=== PATIENT | male | born 1955 | race Caucasian/White ===

== ENCOUNTER 2017-06-07 09:40 | Emergency (ER) | payer BC ==
[2017-06-07 10:23] LABS: BASOPHIL# 0.1 X 10^3uL (0.0-0.1); LYMPHOCYTES# 1.4 X 10^3uL (0.8-3.8); MONOCYTES# 0.5 X 10^3uL (0.2-1.0)
[2017-06-07 10:34] LABS: A/G RATIO 1.3; ALBUMIN 4.2 g/dL (3.5-5.0); ALKALINE PHOSPHATASE 98 U/L (38-126); ALT 149 U/L (21-72); AST 96 U/L (17-59); BILIRUBIN, TOTAL 1.4 mg/dL (0.2-1.3); BLOOD UREA NITROGEN 17 mg/dL (9-20); CALCIUM 9.7 mg/dL (8.4-10.2); CHLORIDE 97 mmol/L (98-107); EST GLOMERULAR FILTRATION RATE > 60 mL/min; GLUCOSE 179 mg/dL (70-100); POTASSIUM 3.4 mmol/L (3.5-5.1); SODIUM 138 mmol/L (137-145); TOTAL PROTEIN 7.4 g/dL (6.3-8.2)
[2017-06-07 10:35] LABS: BASOPHILS 1.1 % (0.0-2.0); EOSINOPHILS 2.4 % (0.0-6.0); EOSINOPHILS# 0.1 X 10^3uL (0.0-0.4); HEMOGLOBIN 18.1 g/dL (14.0-18.0); LYMPHOCYTES 23.8 % (20.0-40.0); MEAN CELL VOLUME 88.8 fL (80.0-100.0); MEAN CORPUS. HGB CONCENTRATION 34.8 g/dL (32.0-36.0); MEAN CORPUSCULAR HEMOGLOBIN 30.9 pg (29.0-35.0); MEAN PLATELET VOLUME 8.3 fL (7.4-10.4); MONOCYTES 8.4 % (2.0-10.0); NEUTROPHILS 64.3 % (54.0-75.0); NEUTROPHILS# 3.9 X 10^3uL (2.6-6.7); PLATELET COUNT 151 X 10^3uL (130-440); RED BLOOD COUNT 5.85 X 10^6uL (4.20-6.10); RED CELL DISTRIBUTION WIDTH 12.4 % (11.5-14.5)
[2017-06-07 10:46] LABS: TROPONIN I < 0.012 ng/mL (0.00-0.034)
--- NOTE | 2017-06-07 12:03 | RADIOLOGY REPORT ---
HISTORY: Shortness of breath COMPARISON: None. FINDINGS: 2 views of the chest obtained. The heart size is normal. Lungs are underexpanded. There is diffuse ai rways thickening. No focal airspace infiltrate is demonstrated. There is no pleural effusion. No pneu mothorax is demonstrated. The chest wall appears grossly intact. IMPRESSION: 1. No acute pneumonia. 2. Pulmonary underexpansion. 3. Diffuse airways thickening, suggestive of bronchitis or asthma. Final Electronic Signature: This report was electronically signed by Srinivasan Almaguer MD on 06/07/2017 12:01 PM. aj /
--- NOTE | 2017-06-07 12:40 | ER PHYSICIAN DOCUMENTATION ---
Physician Documentation [facility] Name:Griffin De La Paz Age:62 yrs Sex:Male :1955 Arrival Date:06/07/2017 Time:09:40 Bed4 Private MD: Kang Rodriguez Disposition: 06/07 13:00 Chart complete. tl1 Disposition: 06/07/17 12:25 Discharged to Home/Self Care. Impression: Dyspnea. - Condition is Good. - Discharge Instructions: DYSPNEA. - Prescriptions for Combivent Respimat 20- 100 mcg/actuation Inhalation aerosol - inhale 1 puff by INHALATION route 4 times per day not to exceed 6 puffs in 24hrs; 1 Inhaler. VENTOLIN - inhale 2 puff by INHALATION route every 4-6 hours; 1 Inhaler. - Medical Reconciliation form form. - Follow up: Private Physician; When: 1 - 2 days; Reason: Recheck today's complaints. - Problem is new. - Symptoms have improved. HPI: 09:52 This 62 yrs old Male presents to ER with complaints of Shortness Of Breath. tl1 06/08 07:41 he has a h/o obesity and is here visiting from [place]. He and his drove and tl1 arrived 2 days ago. Shortly after, he developed dyspnea that is slowly progressive. No cough or fever. No chest pain or hemoptysis. No orthopnea or PND. NO known h/o CAD or CHF. Both legs have been mildly swollen, the left slightly more than the right.. Historical: - Allergies: No known drug Allergies; - Home Meds: 1. losartan-hydrochlorothiazide 100-25 mg oral tab 1 tab once daily for Hypertension 2. Flomax 0.4 mg oral cp24 1 cap once daily for Benign Prostatic Hypertrophy 3. certirizine - PMHx: HYPERTENSION; BPH; Allergies; - PSHx: L knee Surgery; - Tetanus: < 10 years. - Ebola Screening: : Patient negative for fever greater than or equal to 101.5 degrees Fahrenheit, and additional compatible Ebola Virus Disease symptoms. Patient denies exposure to infectious person. Patient denies travel to an Ebola-affected area in the 21 days before illness onset. . - Immunization history: Pneumococcal vaccine is not up to date, Patient has never been vaccinated Flu Vaccine < 1 year Flu Vaccine. - Social history: Smoking status: Patient states former smoker of tobacco. ROS: 06/07 10:00 Respiratory: Positive for shortness of breath. tl1 All other systems are negative. Exam: 10:00 Constitutional: This is a well developed, well nourished patient who is awake, alert, tl1 and in no acute distress. Head/Face: Normocephalic, atraumatic. ENT: Nares patent. No nasal discharge, no septal abnormalities noted. Tympanic membranes are normal and external auditory canals are clear. Oropharynx with no redness, swelling, or masses, exudates, or evidence of obstruction, uvula midline. Mucous membranes moist. 10:00 Neck: Trachea midline, no thyromegaly or masses palpated, and no cervical tl1 lymphadenopathy. Supple, full range of motion without nuchal rigidity, or vertebral point tenderness. No Meningismus. 10:00 Cardiovascular: Rate: normal, Rhythm: regular, Heart sounds: normal. 10:00 Cardiovascular: Edema: 1+ edema to level of left midcalf and right midcalf. 10:00 Respiratory: the patient does not display signs of respiratory distress, Respirations: normal, Breath sounds: are normal, no rales, rhonchi, no stridor, no wheezing. 10:00 Abdomen/GI: Palpation: abdomen is soft and non-tender. 10:00 Musculoskeletal/extremity: Exam is negative for acute changes, tenderness. 10:00 Skin: Exam negative for acute changes. 10:00 Neuro: Exam negative for acute changes. Vital Signs: 09:56 BP 153 / 97; Pulse 87; Resp 20; Temp 97.1(TE); Pulse Ox 86% on R/A; Weight 141.52 kg; lp Height 6 ft. 0 in. (182.88 cm); Pain 0/10; 09:56 Pulse Ox 94% on 2 lpm NC; lp 10:14 BP 136 / 83; Pulse 84; Resp 18; Pulse Ox 92% on 2 lpm NC; lp 12:34 BP 126 / 84; Pulse 77; Resp 18; Pulse Ox 88% on R/A; lp 09:56 Body Mass Index 42.31 (141.52 kg, 182.88 cm) lp MDM: 09:51 Patient medically screened. tl1 12:28 EKG attached rh 12:30 Differential diagnosis: asthma, Bronchitis CHF exacerbation, Myocardial Infarction tl1 pneumonia, pulmonary edema, Pulmonary Embolism reactive airway disease, Unstable Angina. Antibiotic administration: Not indicated. The patient's pulmonary embolism risk score was calculated as follows: No Risks (0 Pts). Data reviewed: vital signs, nurses notes, lab test result(s), EKG, radiologic studies, and as a result, I will discharge patient. Data interpreted: manager development: Pulse oximetry:. Test interpretation: by ED physician or midlevel provider: plain radiologic studies. Counseling: I had a detailed discussion with the patient and/or guardian regarding: the historical points, exam findings, and any diagnostic results supporting the discharge/admit diagnosis, lab results, radiology results, the need for outpatient follow up, for a referral to a specialist, with the patient's primary care provider, to return to the emergency department if symptoms worsen or persist or if there are any questions or concerns that arise at home. ECG:. 12:30 Special discussion: I discussed with the patient/guardian in detail that at this point tl1 there is no indication for admission to the hospital. It is understood, however, that if the symptoms persist or worsen the patient needs to return immediately for re-evaluation. Further emergent ED testing is not indicated at this point in time. I discussed with the patient/guardian in detail the need to arrange with the PCP or specialist further outpatient testing, PFTs, echo. I think his symptoms are multifactorial. I suspect he has some degree of right heart failure, and possibly some degree of HAPE. he is markedly overweight with a h/o sleep apnea and non-compliance with CPAP. He has low lung volumes and probably restrictive pulmonary physiology, and is now at 7500 feet. I doubt PE, ACS, pneumonia, acute bronchitis. He may have an element of bronchospasm. I told him he may be best served by returning to a lower altitude. he and his have decided [place] tomorrow.. ED course: Little change in his symptoms.. 06/07 10:40 Order name: CBC AUTO DIF, MDIF/RMOR IF IND; Complete Time: 12:08 EDMS 06/07 11:02 Interpretation: Normal. tl1 06/07 10:46 Order name: COMPREHENSIVE METABOLIC PANEL; Complete Time: 12:08 EDMS 06/07 11:03 Interpretation: Normal Except: POTASSIUM 3.4; GLUCOSE 179; ALT 149; AST 96; BILIRUBIN, tl1 TOTAL 1.4. 06/07 10:46 Order name: BNP,NT-PRO; Complete Time: 12:08 EDMS 06/07 11:03 Interpretation: Normal: BNP,NT-PRO 50. [facility] 06/07 10:46 Order name: TROPONIN I; Complete Time: 12:08 EDMS 06/07 11:03 Interpretation: Normal: TROPONIN I < 0.012. [facility] 06/07 11:29 Order name: DDIMER; Complete Time: 12:08 EDMS 06/07 11:52 Interpretation: Abnormal: DDIMER 267. [facility] 06/07 12:05 Order name: CXR 2V [id number]; Complete Time: 12:24 EDMS 06/08 08:22 Interpretation: NAD. SEE RADIOLOGIST REPORT. Low lung volumes. ?? thickened airways. [facility] 06/07 12:08 Order name: EKG - 12 Lead; Complete Time: 12:39 tl1 EC:12 Rate is 75 beats/min. Rhythm is regular. Left axis deviation noted. QRS is negative in tl1 leads III, aVF, aVR, V1, V3, V4, V5, V6. MT interval is normal at 164 msec. QRS interval is normal at 101 msec. QT interval is normal at 445 msec. Q waves are Present in leads III, aVF. T waves are Normal. No ST changes noted. Clinical impression: NSR. Low voltages, precordial leads. ? old IWMI. No acute ischemic changes. Interpreted by me. Dispensed Medications: No medications were administered Signatures: Varsha Dixon RN RN lp Leigh, Tom, MD MD tl1 Vannessa Mora
--- NOTE | 2017-06-07 12:40 | ER NURSING DOCUMENTATION ---
Nurse's Notes [facility] Name:Griffin De La Paz Age:62 yrs Sex:Male :1955 Arrival Date:06/07/2017 Time:09:40 Bed4 Private MD: Diagnosis:Dyspnea Presentation: 06/07 09:43 Acuity: ARLENE 3 lp 09:52 Presenting complaint: Patient states: Cough and SOB. Transition of care: Home. Notified lp ED Physician of Dr. Owusu notified. 09:52 Method Of Arrival: Private Vehicle lp Triage Assessment: 09:55 General: Appears in no apparent distress, Behavior is appropriate for age. Pain: Denies lp pain. EENT: No deficits noted. Neuro: No deficits noted. Cardiovascular: Heart tones S1 S2. Respiratory: Reports shortness of breath labored breathing Onset: The symptoms/episode began/occurred 3 days ago , the patient has moderate shortness of breath. GI: Reports constipation. : No deficits noted. Derm: No deficits noted. Musculoskeletal: No deficits noted. Historical: - Allergies: No known drug Allergies; - Home Meds: 1. losartan-hydrochlorothiazide 100-25 mg oral tab 1 tab once daily for Hypertension 2. Flomax 0.4 mg oral cp24 1 cap once daily for Benign Prostatic Hypertrophy 3. certirizine - PMHx: HYPERTENSION; BPH; Allergies; - PSHx: L knee Surgery; - Tetanus: < 10 years. - Ebola Screening: : Patient negative for fever greater than or equal to 101.5 degrees Fahrenheit, and additional compatible Ebola Virus Disease symptoms. Patient denies exposure to infectious person. Patient denies travel to an Ebola-affected area in the 21 days before illness onset. . - Immunization history: Pneumococcal vaccine is not up to date, Patient has never been vaccinated Flu Vaccine < 1 year Flu Vaccine. - Social history: Smoking status: Patient states former smoker of tobacco. Screenin:59 Infectious Disease Risk None. Abuse screen: Denies threats or abuse. Denies injuries lp from another. Nutritional screening: No deficits noted. Assessment: 09:56 Cardiovascular: Rhythm is regular. Respiratory: Airway is patent Respiratory effort is lp even, labored, Breath sounds are diminished bilaterally. Vital Signs: 09:56 BP 153 / 97; Pulse 87; Resp 20; Temp 97.1(TE); Pulse Ox 86% on R/A; Weight 141.52 kg; lp Height 6 ft. 0 in. (182.88 cm); Pain 0/10; 09:56 Pulse Ox 94% on 2 lpm NC; lp 10:14 BP 136 / 83; Pulse 84; Resp 18; Pulse Ox 92% on 2 lpm NC; lp 12:34 BP 126 / 84; Pulse 77; Resp 18; Pulse Ox 88% on R/A; lp 09:56 Body Mass Index 42.31 (141.52 kg, 182.88 cm) lp ED Course: 09:42 Patient arrived in ED. dp 09:43 Varsha Dixon, JUSTINE is Primary Nurse. lp 09:43 Triage completed. lp 09:52 Kang Owusu MD is Attending Physician. tl1 09:[address] Owusu notified. lp 09:57 Valuables Remains with patient Patient has correct armband on for positive lp identification. Placed in gown. Bed in low position. 12:28 EKG attached rh Administered Medications: No medications were administered Outcome: 12:25 Discharge ordered by . tl1 12:34 Discharged to home ambulatory. lp 12:34 Condition: stable 12:34 Instructed on discharge instructions, follow up and referral plans. medication usage. 12:39 Patient left the ED. lp 06/08 11:33 Discharge F/U Call: Unable to reach: no answer rh Signatures: Varsha Dixon, RN JUSTINE Palmer Ramirez Tom, MD MD tl1 Vannessa Mora rh Eveila Mancia dp
== END 2017-06-07 12:40 | disposition home or self-care (01) ==
LOC: ER 09:40
DX: R06.00 Dyspnea, unspecified (principal); R06.02 Shortness of breath; R60.0 Localized edema; E66.9 Obesity, unspecified; R79.1 Abnormal coagulation profile; R91.8 Other nonspecific abnormal finding of lung field; I10 Essential (primary) hypertension; Z79.899 Other long term (current) drug therapy; T70.29XA Other effects of high altitude, initial encounter
CPT/HCPCS: 71020; 80053; 83880; 84484; 85025; 85379; 93005; 99281; 99283